=== PATIENT | female | born 1965 | race Caucasian/White ===

== ENCOUNTER 2020-01-02 19:17 | Emergency (ER) | payer OTHER ==
[~2020-01-02 19:17] MED LIST: Iopamidol 370 76% 100 ML VIAL ONE
[2020-01-02 20:02] LABS: #Basophils 0.1 thou/uL (0.0-0.2); #Eosinphils 0.7 thou/uL (0.0-0.7); #Lymphocytes 4.4 thou/uL (1.20-3.40); #Monocytes 1.1 thou/uL (0.11-0.59); #Neutrophils 8.2 thou/uL (1.40-6.50); %Basophils 0.9 % (0.0-1.0); %Eosinophils 4.6 % (0.0-10.0); %Lymphocytes 30.4 % (21.0-51.0); %Monocytes 7.8 % (0.0-10.0); %Neutrophils 56.4 % (42.0-75.0); Hemoglobin 13.2 g/dL (12.0-16.0); Mean Corpuscular HGB CONC 32.4 g/dL (32.0-36.0); Mean Corpuscular Hemoglobin 31.2 pg (27.0-31.0); Mean Corpuscular Volume 96.3 fL (78.0-98.0); Mean Platelet Volume 9.1 fL (7.4-10.4); Platelet Count 340 thou/uL (130-400); RBC Distribution Width 13.9 % (11.5-14.5); Red Blood Cell (RBC) Count 4.24 mill/uL (4.20-5.40); White Blood Cell (WBC) Count 14.5 thou/uL (4.8-10.8)
[2020-01-02 20:22] LABS: ALT (SGPT) 35 U/L (8-55); AST (SGOT) 23 U/L (5-34); Albumin 4.2 g/dL (3.5-5.0); Alkaline Phosphatase 88 U/L (40-110); Anion Gap 16 mmol/L (10-20); BUN (Urea Nitrogen) 7 mg/dL (9.8-20.1); Bilirubin, Total 0.3 mg/dL (0.2-1.2); CK (CPK) 284 U/L (29-168); Calc. Creatinine Clearance 0 mL/min (70-130); Calcium 9.4 mg/dL (7.8-10.44); Carbon Dioxide 27 mmol/L (22-29); Chloride 102 mmol/L (98-107); Estimated GFR-MDRD 71; Globulin 2.8 g/dL (2.4-3.5); Glucose 136 mg/dL (70-105); Potassium 4.1 mmol/L (3.5-5.1); Sodium 141 mmol/L (136-145)
[2020-01-02] MEDS ORDERED: diphenhydrAMINE 50 MG/ML VIAL ONE (20:24)
[2020-01-02] MEDS ORDERED: Famotidine/PF 20 mg/2ml Vial ONE (20:24)
[2020-01-02] MEDS ORDERED: methylPREDNISolone Sod Succ/PF 125 MG/2 ML VIAL ONE (20:24)
--- NOTE | 2020-01-02 21:33 | CT ---
CT arteriogram chest with IV contrast and 3-D imaging HISTORY: Chest pain. Dyspnea. Recent surgery. FINDINGS: There is good contrast opacification of the pulmonary arteries and thoracic aorta with norm al branching of the great vessels at the aortic arch. Very subtle patchy areas of groundglass parenchymal infiltrate are present within each upper lobe. No pleural fluid. Nonenlarged, reactive ap pearing lymph nodes throughout the mediastinum. Postoperative changes of the neck consistent with recent cervical spine surgery. IMPRESSION : No CT evidence of pulmonary embolus. Subtle patchy peripheral groundglass parenchymal opacities involving each upper lobe. Clinical correl ation regarding other signs and symptoms of multifocal viral pneumonitis is required.
== END 2020-01-02 22:27 | disposition home or self-care (01) ==
LOC: ERS 19:17
DX: G89.18 Other acute postprocedural pain (principal); R07.9 Chest pain, unspecified; E11.9 Type 2 diabetes mellitus without complications; M06.9 Rheumatoid arthritis, unspecified; F31.9 Bipolar disorder, unspecified; F17.210 Nicotine dependence, cigarettes, uncomplicated; Z79.84 Long term (current) use of oral hypoglycemic drugs; Z79.899 Other long term (current) drug therapy
CPT/HCPCS: 71275; 80053; 82550; 84484; 85025; 93005; 96374; 96375; J1200; J2930; Q9967; S0028